=== PATIENT | female | born 1945 | race Two or more races ===

== ENCOUNTER 2024-08-05 12:48 | Inpatient (IN) | payer OTHER ==
[~2024-08-05] VITALS: Ht 165.1 cm; Wt 61.5 kg
[2024-08-05] VITALS (12 sets, daily range): BP systolic 96–167; BP diastolic 59–94; PULSE 62–98; RESP 13–23; TEMP 97.1; O2SAT 92–98
[2024-08-05] MEDS: ASPirin 325 MG TAB PO ONE (13:15)
[2024-08-05 14:12] LABS: Basophils # (auto) 0.1 10 ^3/uL (0-0.2); Basophils % (auto) 0.8 % (0.0-2.0); Eosinophils # (auto) 0.5 10 ^3/uL (0-0.8); Eosinophils % (auto) 5.8 % (0.0-7.0); Hematocrit 46.7 % (36.0-46.0); Hemoglobin 15.7 g/dL (12.2-16.2); Lymphocytes # (auto) 1.3 10 ^3/uL (0.4-5.4); Lymphocytes % (auto) 15.6 % (10.0-50.0); Mean Corpuscular Hemoglobin 29.8 pg (28.0-32.0); Mean Corpuscular Hgb Conc. 33.6 g/dL (32.0-36.0); Mean Corpuscular Volume 88.7 fL (80.0-100.0); Monocytes # (auto) 0.7 10 ^3/uL (0-1.3); Monocytes % (auto) 8.1 % (0.0-12.0); Neutrophils # (auto) 5.7 10 ^3/uL (1.6-8.6); Neutrophils % (auto) 69.7 % (37.0-80.0); Nucleated Red Blood Cells % 0.1 %; Platelet Count (auto) 148 10^3/uL (140-450); Red Blood Cells 5.26 10^6/uL (4.0-5.20); Red Cell Distribution Width 13.4 % (11.8-14.3); White Blood Cell 8.2 10^3/uL (4.4-10.8)
[2024-08-05 14:36] LABS: Alanine Aminotransferase 24 U/L (7-40); Albumin 4.7 g/dL (3.2-4.8); Alkaline Phosphatase 101 U/L (46-116); Anion Gap 6 (5-15); Aspartate Aminotransferase 34 U/L (13-40); BUN/Creatinine Ratio 17.1 (10.0-20.0); Blood Urea Nitrogen 14 mg/dL (9-23); Calcium 10.6 mg/dL (8.7-10.4); Carbon Dioxide 28 mmol/L (20-31); Chloride 106 mmol/L (98-107); Glucose 119 mg/dL (74-106); Potassium 4.7 mmol/L (3.5-5.1); Sodium 140 mmol/L (136-145)
[2024-08-05 14:37] LABS: Bilirubin, Total 0.6 mg/dL (0.2-1.0); Total Protein 7.2 g/dL (5.7-8.2)
[2024-08-05] MEDS: HEPARIN SODIUM (PORCINE) 5000 UNITS/ML 1ML VIAL IV ONE (14:58)
[2024-08-05 15:47] LABS: INR 1.03 (0.9-1.15); Partial Thromboplastin Time 25.6 SEC (24.5-34.5); Prothrombin Time 10.9 sec (9.3-11.8)
[2024-08-05] MEDS ORDERED: MORPHINE SULFATE INJ 2 MG/ml SYRG IV PRN ×3 (16:00→19:45)
[2024-08-05] MEDS ORDERED: NITROGLYCERIN 0.4 MG SL TAB SL PRN ×2 (16:00→19:45)
[2024-08-05] MEDS: IODIXANOL 320MG/ML 100ML BTL IV ONE (16:19)
[2024-08-05] MEDS: fentaNYL CITRATE 100 MCG/2 ML VL ONE (16:41)
[2024-08-05] MEDS: VERAPAMIL 2.5MG/ML INJ 2ML VIAL IV ONE ×2 (16:41→17:26)
[2024-08-05] MEDS: HEPARIN SODIUM (PORCINE) 5000 UNITS/ML 1ML VIAL ONE (16:41)
[2024-08-05] MEDS: ANGIOMAX 250 MG VIAL IV ONE (16:41)
[2024-08-05] MEDS: MIDAZOLAM HCL 2MG/2ML 2ml VIAL (1mg/ml) ONE (16:42)
[2024-08-05] MEDS: SODIUM CHL 0.9% 0 ML ONE (16:42)
[2024-08-05] MEDS: LIDOCAINE 2%HCL (LOCAL ANESTH.) INJ 20ML MDV ONE (16:42)
[2024-08-05 19:15] LABS: INR 1.05 (0.9-1.15); Partial Thromboplastin Time 26.3 SEC (24.5-34.5); Prothrombin Time 11.1 sec (9.3-11.8)
[2024-08-05] MEDS ORDERED: ACETAMINOPHEN 325 MG TAB PO PRN (19:45)
[2024-08-05] MEDS: HEPARIN DRIP/D5W 100UNITS/ML 250 ML IV SCH (19:59)
[2024-08-05] MEDS: MORPHINE SULFATE 4 MG/ML SYR/VIAL IV ONE (20:00)
[2024-08-05] MEDS: ONDANSETRON HCL 4 MG/2 ML VIAL IV ONE (20:00)
[2024-08-05] MEDS: hydrALAZINE HCL 20 MG/ML VL IV ONE (20:00)
[2024-08-05] MEDS: HEPARIN DRIP/D5W 100UNITS/ML 250 ML IV ONE (20:01)
[2024-08-05] MEDS: SODIUM CHLOR 0.9% PF (SALINE LOCK) 10ML VIAL/SYR IV SCH (21:25)
[2024-08-05] MEDS: ATORVASTATIN 20 MG TAB PO SCH (21:25)
[2024-08-05] MEDS: METOPROLOL TARTRATE 25 MG TAB PO SCH (21:27)
[2024-08-05] MEDS ORDERED: ATORVASTATIN 20 MG TAB PO SCH (22:00)
[2024-08-06] VITALS (9 sets, daily range): BP systolic 101–153; BP diastolic 52–96; PULSE 65–90; RESP 16–20; TEMP 97.1–98.1; O2SAT 90–100
[2024-08-06] MEDS: LORazepam 0.5 MG TAB PO PRN (00:26)
[2024-08-06 02:45] LABS: INR 1.05 (0.9-1.15); Partial Thromboplastin Time 42.7 SEC (24.5-34.5); Prothrombin Time 11.1 sec (9.3-11.8)
[2024-08-06] MEDS: HEPARIN DRIP/D5W 100UNITS/ML 250 ML IV SCH (03:15)
[2024-08-06] MEDS: hydrALAZINE HCL 20 MG/ML VL IV PRN (03:42)
[2024-08-06] MEDS: ONDANSETRON HCL 4 MG/2 ML VIAL IV PRN (04:14)
[2024-08-06 06:56] LABS: Basophils # (auto) 0 10 ^3/uL (0-0.2); Basophils % (auto) 0.3 % (0.0-2.0); Eosinophils # (auto) 0.3 10 ^3/uL (0-0.8); Hematocrit 42.5 % (36.0-46.0); Hemoglobin 14.8 g/dL (12.2-16.2); Lymphocytes # (auto) 1.8 10 ^3/uL (0.4-5.4); Lymphocytes % (auto) 13.1 % (10.0-50.0); Mean Corpuscular Hemoglobin 30.7 pg (28.0-32.0); Mean Corpuscular Hgb Conc. 34.8 g/dL (32.0-36.0); Mean Corpuscular Volume 88.3 fL (80.0-100.0); Monocytes # (auto) 1.2 10 ^3/uL (0-1.3); Monocytes % (auto) 8.8 % (0.0-12.0); Neutrophils # (auto) 10.1 10 ^3/uL (1.6-8.6); Neutrophils % (auto) 75.8 % (37.0-80.0); Platelet Count (auto) 159 10^3/uL (140-450); Red Blood Cells 4.81 10^6/uL (4.0-5.20); White Blood Cell 13.3 10^3/uL (4.4-10.8)
[2024-08-06 07:08] LABS: Alanine Aminotransferase 31 U/L (7-40); Alkaline Phosphatase 90 U/L (46-116); Anion Gap 9 (5-15); BUN/Creatinine Ratio 14.1 (10.0-20.0); Blood Urea Nitrogen 10 mg/dL (9-23); Calcium 9.9 mg/dL (8.7-10.4); Carbon Dioxide 24 mmol/L (20-31); Chloride 103 mmol/L (98-107); Glucose 121 mg/dL (74-106); Potassium 3.7 mmol/L (3.5-5.1); Sodium 136 mmol/L (136-145)
[2024-08-06 07:09] LABS: LDL Cholesterol 83 mg/dL (< 100); Magnesium 1.9 mg/dL (1.6-2.6); Triglycerides 91 mg/dL (< 150)
[2024-08-06 07:10] LABS: Albumin 4.3 g/dL (3.2-4.8); Aspartate Aminotransferase 170 U/L (13-40)
[2024-08-06 07:11] LABS: Bilirubin, Total 0.9 mg/dL (0.2-1.0); Cholesterol 152 mg/dL (< 200); HDL Cholesterol 54 mg/dL (40-59); Total Protein 6.7 g/dL (5.7-8.2)
[2024-08-06] MEDS ORDERED: ATOR-507 PO (10:13)
[2024-08-06] MEDS ORDERED: FLUO20TA42 PO (10:13)
[2024-08-06] MEDS ORDERED: ASPI1TAB19 PO (10:13)
[2024-08-06] MEDS ORDERED: BISO5TAB44 PO (10:13)
[2024-08-06] MEDS ORDERED: FER325T PO (10:13)
[2024-08-06] MEDS ORDERED: FOLITAB22 PO (10:13)
[2024-08-06 11:19] LABS: INR 1.06 (0.9-1.15); Prothrombin Time 11.2 sec (9.3-11.8)
[2024-08-06] MEDS: FUROSEMIDE 40 MG TAB PO ONE (12:24)
[2024-08-06] MEDS: AMIODARONE HCL 200 MG TAB PO ONE (12:25)
[2024-08-06] MEDS: CLOPIDOGREL BISULFATE 75 MG TAB PO SCH (12:25)
[2024-08-06] MEDS: LISINOPRIL 20 MG TAB PO SCH (12:25)
[2024-08-06] MEDS: ASPirin 81 mg TAB PO SCH (12:25)
[2024-08-06 17:37] LABS: INR 1.08 (0.9-1.15); Prothrombin Time 11.4 sec (9.3-11.8)
[2024-08-06 17:52] LABS: Partial Thromboplastin Time 73.8 SEC (24.5-34.5)
[2024-08-06] MEDS: HYDROcodone-ACET 5/325MG TAB PO PRN (18:29)
[2024-08-06] MEDS: AMIODARONE HCL 200 MG TAB PO SCH (21:48)
[2024-08-06 23:24] LABS: INR 1.08 (0.9-1.15); Prothrombin Time 11.4 sec (9.3-11.8)
[2024-08-06 23:26] LABS: Partial Thromboplastin Time 86.5 SEC (24.5-34.5)
[2024-08-07] VITALS (8 sets, daily range): BP systolic 88–116; BP diastolic 52–73; PULSE 76–98; RESP 17–22; TEMP 97.9–98.8; O2SAT 93–100
[2024-08-07] MEDS: HEPARIN DRIP/D5W 100UNITS/ML 250 ML IV SCH (00:30)
[2024-08-07 06:54] LABS: INR 1.08 (0.9-1.15); Partial Thromboplastin Time 50.2 SEC (24.5-34.5); Prothrombin Time 11.4 sec (9.3-11.8)
[2024-08-07 07:03] LABS: Alanine Aminotransferase 25 U/L (7-40); Albumin 4.4 g/dL (3.2-4.8); Alkaline Phosphatase 93 U/L (46-116); Anion Gap 9 (5-15); Aspartate Aminotransferase 100 U/L (13-40); BUN/Creatinine Ratio 16.9 (10.0-20.0); Blood Urea Nitrogen 13 mg/dL (9-23); Calcium 9.8 mg/dL (8.7-10.4); Carbon Dioxide 27 mmol/L (20-31); Chloride 100 mmol/L (98-107); Glucose 119 mg/dL (74-106); Potassium 3.5 mmol/L (3.5-5.1); Sodium 136 mmol/L (136-145)
[2024-08-07 07:04] LABS: Bilirubin, Total 1.3 mg/dL (0.2-1.0); Total Protein 6.9 g/dL (5.7-8.2)
[2024-08-07] MEDS: FUROSEMIDE 40 MG TAB PO SCH (11:08)
[2024-08-07] MEDS: EMPAGLIFLOZIN 10 MG TAB PO SCH (11:11)
[2024-08-07] MEDS: APIXABAN 2.5 MG TAB PO SCH (11:11)
[2024-08-07] MEDS: SPIRONOLACTONE 25 MG TAB PO SCH (11:11)
[2024-08-07 11:38] LABS: Urine Bacteria None Seen /hpf (None Seen)
[2024-08-07 11:54] LABS: Urine Blood Negative /uL (Negative); Urine Clarity Clear (Clear); Urine Color Yellow (Yellow); Urine Mucus FEW (None Seen); Urine Protein, UAD Negative (Negative); Urine Specific Gravity 1.019 (1.001-1.035); Urine Urobilinogen Normal (Negative); Urine WBC 13 /hpf (0 - 5)
[2024-08-07] MEDS: SODIUM CHLORIDE 0.9% 500 ML IV ONE (23:30)
[2024-08-08 00:42] VITALS: BP 92/54; PULSE 85
[2024-08-08 01:00] VITALS: BP 87/53; PULSE 88; RESP 17; TEMP 99.1; O2SAT 94
[2024-08-08 01:15] VITALS: BP 102/54; PULSE 86; RESP 18; TEMP 98.5; O2SAT 94
== END 2024-08-08 01:20 | disposition short-term general hospital (02) | DRG 280 ==
LOC: ER 12:48 → EDSEX 12:48 → EDBD 12:48 → TELE 19:37 → TELE-WESTW 20:30
PROVIDERS: ADMIT Internal Medicine; ATTEND Internal Medicine
PROC: 4A023N7 Measurement of Cardiac Sampling and Pressure, Left Heart, Percutaneous Approach (ICD-10-PCS; principal; 2024-08-05)
PROC: B211YZZ Fluoroscopy of Multiple Coronary Arteries using Other Contrast (ICD-10-PCS; 2024-08-05)
PROC: B213YZZ Fluoroscopy of Multiple Coronary Artery Bypass Grafts using Other Contrast (ICD-10-PCS; 2024-08-05)
DX: I21.09 ST elevation (STEMI) myocardial infarction involving other coronary artery of anterior wall (principal); I50.43 Acute on chronic combined systolic (congestive) and diastolic (congestive) heart failure; I25.810 Atherosclerosis of coronary artery bypass graft(s) without angina pectoris; I47.20 Ventricular tachycardia, unspecified; I42.0 Dilated cardiomyopathy; J44.9 Chronic obstructive pulmonary disease, unspecified; I11.0 Hypertensive heart disease with heart failure; I16.0 Hypertensive urgency; G24.9 Dystonia, unspecified; E78.5 Hyperlipidemia, unspecified; I25.5 Ischemic cardiomyopathy; I07.1 Rheumatic tricuspid insufficiency; Z87.891 Personal history of nicotine dependence; Z98.61 Coronary angioplasty status; Z95.3 Presence of xenogenic heart valve; Z79.899 Other long term (current) drug therapy
CPT/HCPCS: 36415; 71045; 80053; 80061; 81001; 83036; 83735; 83880; 84443; 84484; 85025; 85610; 85730; 93005; 93306; 93459; 96365; 99152; 99291; G0378; J2250; J2405; Q9967